=== PATIENT | male | born 1970 | race African-American/Black ===

== ENCOUNTER 2016-06-06 05:45 | Emergency (ER) | payer BC ==
--- NOTE | 2016-06-11 07:42 | ER ---
ADMIT: 06/06/2016 RM/LOC: [facility] MR#: [id number] [address] LULU SMITH [address] [place] [id number] Emergency Room Report SEX: M AGE: 46 : 1970 DATE: 06/06/2016 TIME: 0545 hours. Please refer to my T-sheet for complete H and P. HISTORY OF PRESENT ILLNESS: Briefly, the patient is a 46-year-old, who comes with a headache. He has had some problems with chronic headaches in the past. He has been worked up. They put him on duloxetine, and he actually thought he could take it as needed, took a couple extra doses at night and then he was worried and he has missed work. He says his head hurts on the top. He has been under more stress. No fevers. No chills. No trauma. PHYSICAL EXAMINATION: VITAL SIGNS: Stable. HEENT: No meningismus. LUNGS: Clear. HEART: Regular. NEURO: Alert and oriented. Nonfocal. EMERGENCY DEPARTMENT COURSE: I gave him Toradol 60 mg IM. He is ready for discharge. ASSESSMENT: 1. Headache. 2. Chronic pain. PLAN: Follow up with Dr. Jiménez. Take the duloxetine as directed. Reglan 10 mg t.i.d. p.r.n., Tylenol, Motrin. Noah Pickard MD/ aggiel JOB #: [id number] CC: Noah Pickard MD, Attending Physician
== END 2016-06-06 06:30 | disposition home or self-care (01) ==
LOC: ER 05:45
DX: G89.29 Other chronic pain (principal); R51 Headache

== ENCOUNTER 2016-07-30 11:22 | Emergency (ER) | payer SELFPAY ==
--- NOTE | 2016-08-02 09:05 | ER ---
ADMIT: 07/30/2016 RM/LOC: [facility] MR#: [id number] [address] LULU SMITH [address] [place] [id number] Emergency Room Report SEX: M AGE: 46 : 1970 DATE: 07/30/2016 TIME: 1122 hours. Please refer to my T-sheet for complete H and P. Briefly, the patient is a 46-year-old who was visiting his son when he started having a seizure. He has a known history of seizure disorder. He had an intracranial hemorrhage in the past. He has not been taking any of his medications. He says he feels fine now. He knows where he is at. PHYSICAL EXAMINATION: VITAL SIGNS: All stable. HEENT: Grossly normal. LUNGS: Clear. HEART: Regular. ABDOMEN: Soft. SKIN: No rash. NEUROLOGIC: Alert and oriented, nonfocal. EMERGENCY DEPARTMENT COURSE: CT scan revealed no acute changes. CBC was normal except white count 2.4. Liver functions normal. Chemistries all normal except potassium 3.5, glucose 143. I gave him Ativan 1 p.o., Keppra 500 p.o. I talked to Dr. Jiménez's office, she was not available, I talked to the nurse. They looked it up, he was supposed to be on Keppra, they would gladly follow him up. I gave him his first dose here. ASSESSMENT: 1. Seizure with a known seizure disorder. 2. Leukopenia which needs followed up. 3. Noncompliance. PLAN: Keppra 500 b.i.d. Follow up with Dr. Jiménez this week. Return if worse. Noah Pickard MD/ louise JOB #: [id number] CC: Noah Pickard MD, Attending Physician
== END 2016-07-30 13:50 | disposition home or self-care (01) ==
LOC: ER 11:22
DX: G40.909 Epilepsy, unspecified, not intractable, without status epilepticus (principal); D72.819 Decreased white blood cell count, unspecified; F17.210 Nicotine dependence, cigarettes, uncomplicated; Z91.19 Patient's noncompliance with other medical treatment and regimen